=== PATIENT | female | born 1950 | race Caucasian/White ===

== ENCOUNTER 2017-01-25 06:58 | Emergency (ER) | payer BC, OTHER ==
[2017-01-25 07:42] VITALS: BMI 24.7
--- NOTE | 2017-01-25 08:23 | PDOC ---
History of Present Illness - General Chief Complaint: Allergic Reaction Stated Complaint: ALLERGIC REACTION Time Seen by Provider: 01/25/17 07:46 History Source: Patient Exam Limitations: No Limitations - History of Present Illness Initial Comments: 01/25/17 08:05 66-year-old female presents to the ED with complaints of pruritic rash to the face after eating tera this past Tuesday. Patient has been using topical lotion to the area to relieve itching but symptoms continue. Patient denies shortness of breath, difficulty swallowing, wheezing, chest pain, or tongue swelling. Patient states has had this reaction before to tera but states some reactions are worse than others. Timing/Duration: constant Severity: moderate Associated Symptoms: denies: denies symptoms Past History - Past Medical History Allergies/Adverse Reactions: Allergies Allergy/AdvReac Type Severity Reaction Status Date / Time azithromycin [From Zithromax] Allergy Verified 01/25/17 07:17 Home Medications: Ambulatory Orders Loratadine [Claritin -] 10 mg PO DAILY 01/25/17 Other medical history: DENIES - Psycho/Social/Smoking Cessation Hx Suicidal Ideation: No Smoking History: Never smoked Information on smoking cessation initiated: No Patient Lives Alone: No Review of Systems - Review of Systems Able to Perform ROS?: Yes Is the patient limited Green[place]ic proficient: Yes Constitutional: No: Symptoms Reported HEENTM: No: Symptoms Reported Respiratory: No: Symptoms reported Cardiac (ROS): No: Symptoms Reported ABD/GI: No: Symptoms Reported : No: Symptoms Reported Musculoskeletal: No: Symptoms Reported Integumentary: Yes: Erythema, Pruritus, Rash Neurological: No: Symptoms reported Endocrine: No: Symptoms Reported, Unexplained Weight Loss *Physical Exam - Vital Signs Last Vital Signs Temp Pulse Resp BP Pulse Ox 98 F 85 18 148/98 99 01/25/17 07:12 01/25/17 07:12 01/25/17 07:12 01/25/17 07:12 01/25/17 07:12 - Physical Exam General Appearance: Yes: Nourished, Appropriately Dressed. No: Apparent Distress HEENT: positive: EOMI, BÁRBARA, TMs Normal, Pharynx Normal. negative: Pale Conjunctivae Neck: positive: Supple. negative: Lymphadenopathy (R), Lymphadenopathy (L) Respiratory/Chest: positive: Lungs Clear, Normal Breath Sounds. negative: Respiratory Distress, Accessory Muscle Use Cardiovascular: positive: Regular Rhythm, Regular Rate. negative: Murmur Integumentary: positive: Rash (erythematous pinhead sized vesicular rash involving the lips, chin, nasolabial fold, nose, and left upper eyelid.) Neurologic: positive: Motor Strength 5/5 (ambulatory) Medical Decision Making - Medical Decision Making 01/25/17 08:07 Patient here with localized allergic reaction secondary to ingesting mangel. Patient has had local reactions similar to this more minor and more severe. Patient states did not take any Benadryl since she was hoping that the topicals she was using what alleviate the symptoms including the Claritin that she took yesterday. Patient had no respiratory compromise and is speaking full sentences without difficulty. Patient ordered for prednisone and Benadryl here and will be discharged home with the same. 01/25/17 08:42 Patient will be sent home with the same. Patient to follow-up with her PCP Dr. Craig. *DC/Admit/Observation/Transfer Diagnosis at time of Disposition: Allergic reaction to food Qualifiers: Encounter type: initial encounter Qualified Code(s): T78.1XXA - Other adverse food reactions, not elsewhere classified, initial encounter - Discharge Dispostion Disposition: HOME Condition at time of disposition: Good - Referrals Referrals: Malena Perez [Primary Care Provider] - - Patient Instructions Printed Discharge Instructions: DI for General Allergic Reactions Additional Instructions: I recommend that you continue with the Benadryl every 8 hours as needed for itching. I also recommended that you start prednisone tomorrow for the next 3 days since your given your first dose here in the ER today.
[2017-01-25] MEDS ORDERED: diphenhydrAMINE HCL 25 MG CAPSULE (FP) PO ONE ×2 (08:24→08:29)
[2017-01-25] MEDS ORDERED: predniSONE 20 MG TABLET (UD) PO ONE (08:24)
[2017-01-25] MEDS ORDERED: predniSONE 20 MG TABLET (UD) ONE (08:28)
[2017-01-25 08:55] VITALS: BP 141/76; PULSE 80; TEMP 98.1
== END 2017-01-25 08:56 | disposition home or self-care (01) ==
LOC: JER 06:58
DX: T78.1XXA Other adverse food reactions, not elsewhere classified, initial encounter (principal); L27.2 Dermatitis due to ingested food; X58.XXXA Exposure to other specified factors, initial encounter
CPT/HCPCS: 99282-25

== ENCOUNTER 2024-09-06 19:37 | Emergency (ER) | payer OTHER, BC ==
[2024-09-06 19:47] VITALS: BP 158/98; PULSE 75; RESP 18; TEMP 97.3; BMI 23.5
[2024-09-06 20:14] LABS: HEMATOCRIT 45.8 % (32.4-45.2); HEMOGLOBIN 14.9 G/dL (10.7-15.3); MCH 30.1 pg (25.7-33.7); MCHC 32.5 g/dl (32.0-36.0); MEAN CELL VOLUME 92.5 fl (80-96); MEAN PLT VOLUME 8.7 fl (7.5-11.1); PLATELET COUNT 199.7 10^3/uL (134-434); RBC 4.95 10^6/uL (3.60-5.2); RDW 13.9 % (11.6-15.6); WHITE BLOOD COUNT 7.8 10^3/uL (4.0-10.8)
[2024-09-06 20:38] LABS: ALBUMIN 4.8 g/dl (3.4-5.0); BILIRUBIN,TOTAL 0.3 mg/dl (0.2-1); CREATININE 0.7 mg/dl (0.6-1.3); POTASSIUM 3.9 mmol/L (3.5-5.1); TOT PROT 7.3 g/dl (6.4-8.2)
== END 2024-09-06 21:11 | disposition home or self-care (01) ==
LOC: FER 19:37
DX: R31.9 Hematuria, unspecified (principal)
CPT/HCPCS: 36415; 80053; 81003; 81015; 85027; 87086; 99283-25

== ENCOUNTER 2024-09-09 17:08 | Emergency (ER) | payer OTHER, BC ==
[2024-09-09 17:13] VITALS: BP 142/88; PULSE 90; RESP 18; TEMP 98.2; BMI 23.5
[2024-09-09] MEDS ORDERED: ONDANSETRON 4 MG/2 ML VIAL ONE (18:22)
[2024-09-09] MEDS ORDERED: ACETAMINOPHEN INJECTION 100 ML ONE (18:22)
[2024-09-09] MEDS: ONDANSETRON 4 MG/2 ML VIAL IVPUSH ONE (18:40)
[2024-09-09] MEDS: SODIUM CHLORIDE 0.9% 500 ML INFUS.BAG IV ONE (18:40)
[2024-09-09] MEDS: ACETAMINOPHEN 1000 MG/100 ML BAG IVPB ONE (18:40)
[2024-09-09 18:49] LABS: BASO % 0.2 % (0-2.0); EOS % 0.1 % (0-4.5); HEMATOCRIT 42.8 % (32.4-45.2); HEMOGLOBIN 14.4 GM/dL (10.7-15.3); LYMPH % 7.3 % (8-40); MCH 30.7 pg (25.7-33.7); MCHC 33.6 g/dl (32.0-36.0); MEAN CELL VOLUME 91.6 fl (80-96); MEAN PLT VOLUME 8.1 fl (7.5-11.1); MONO % 4.3 % (3.8-10.2); NEUT % 88.1 % (42.8-82.8); PLATELET COUNT 207 10^3/uL (134-434); RBC 4.68 M/mm3 (3.60-5.2); RDW 13.1 % (11.6-15.6); WHITE BLOOD COUNT 10.8 K/mm3 (4.0-10.0)
[2024-09-09 18:57] LABS: INR 0.95 (0.83-1.09); PROTHROMBIN TIME (PATIENT) 10.7 SEC (9.7-13.0)
[2024-09-09 18:59] LABS: ACTIVATED PTT 26.7 SECONDS (25.2-36.5)
[2024-09-09 19:18] LABS: POTASSIUM 3.9 mmol/L (3.5-5.1)
[2024-09-09 19:19] LABS: CALCIUM 9.8 mg/dL (8.5-10.1)
[2024-09-09 19:20] LABS: ALBUMIN 3.8 g/dl (3.4-5.0); BLOOD UREA NITROGEN 23.2 mg/dL (7-18)
[2024-09-09 19:23] LABS: CREATININE 0.8 mg/dL (0.55-1.3)
[2024-09-09 19:24] LABS: BILIRUBIN,TOTAL 0.2 mg/dL (0.2-1)
[2024-09-09 19:25] LABS: TOT PROT 7.2 g/dl (6.4-8.2)
[2024-09-09 20:58] LABS: EPI CELLS 1 /uL (0-25.1); HYALINE CASTS 0 /uL (0-3.1); URINE APPEARANCE CLEAR; URINE BACTERIA 3 /uL (0-1359); URINE BILIRUBIN NEGATIVE (NEGATIVE); URINE COLOR YELLOW; URINE GLUCOSE (UA) NEGATIVE (NEGATIVE); URINE KETONE 1+ (NEGATIVE); URINE LEUK ESTERASE NEGATIVE (NEGATIVE); URINE NITRITE NEGATIVE (NEGATIVE); URINE PROTEIN NEGATIVE (NEGATIVE); URINE RBC 252 /uL (0-23.9); URINE UROBILINOGEN 0.2 mg/dL (0.2-1.0); URINE WBC 7 /uL (0-25.8)
== END 2024-09-09 22:14 | disposition left against medical advice (07) ==
LOC: JER 17:08
PROC: 3E033NZ Introduction of Analgesics, Hypnotics, Sedatives into Peripheral Vein, Percutaneous Approach (ICD-10-PCS; principal; 2024-09-09)
PROC: 3E033GC Introduction of Other Therapeutic Substance into Peripheral Vein, Percutaneous Approach (ICD-10-PCS; 2024-09-09)
DX: R10.31 Right lower quadrant pain (principal); R11.10 Vomiting, unspecified
CPT/HCPCS: 36415; 74177-TC; 76705-TC; 80053; 81003; 83690; 84484; 85025; 85610; 85730; 86850; 86900; 86901; 87086; 93005; 93010; 99285-25; J0131

== ENCOUNTER 2024-09-10 14:58 | Emergency (ER) | payer OTHER, BC ==
[2024-09-10 15:06] VITALS: BP 167/90; PULSE 77; RESP 17; TEMP 98.1; BMI 23.1
[2024-09-10] MEDS ORDERED: TAMSULOSIN HCL 0.4 MG CAP ONE (17:16)
[2024-09-10] MEDS: TAMSULOSIN HCL 0.4 MG CAP PO ONE (17:19)
[2024-09-10] MEDS ORDERED: ONDANSETRON 4 MG/2 ML VIAL ONE (17:59)
[2024-09-10] MEDS: SODIUM CHLORIDE 0.9% 500 ML INFUS.BAG IV ONE (18:02)
[2024-09-10] MEDS: ONDANSETRON 4 MG/2 ML VIAL IVPUSH ONE (18:07)
== END 2024-09-10 18:55 | disposition left against medical advice (07) ==
LOC: FER 14:58
PROC: 3E033GC Introduction of Other Therapeutic Substance into Peripheral Vein, Percutaneous Approach (ICD-10-PCS; principal; 2024-09-10)
DX: N13.2 Hydronephrosis with renal and ureteral calculous obstruction (principal); R11.2 Nausea with vomiting, unspecified; R10.9 Unspecified abdominal pain; R31.9 Hematuria, unspecified
CPT/HCPCS: 99284-25